=== PATIENT | female | born 2000 | race Two or more races ===

== ENCOUNTER 2021-08-12 13:28 | Emergency (ER) | payer MEDICAID ==
[~2021-08-12] VITALS: Ht 162.6 cm; Wt 65.8 kg
--- NOTE | 2021-08-12 13:45 | NUR ---
BIB SELF C/O CHEST PAIN SHARP AND PRESSURE LIKE STARTED 11AM TODAY NON RADIATING. PT STATED THE PAIN WAS 10/10 ON PS EARLIER BUT CURRENTLY 3/10/ PT ATTACHED TO MONITOR. PROVIDED WITH WARM BLANKET FOR COMFORT. VITALS WITHIN NORMAL LIMITS. BREATHING REGULAR AND UNLABORED. AWAITING MD ALONSO.
[2021-08-12] MEDS ORDERED: MAG HYDROX/AL HYDROX/SIMETH 30 ML UDC PO ONE (14:30)
[2021-08-12] MEDS ORDERED: LIDOCAINE VISCOUS 2% UD 15 ML UDC MM ONE (14:30)
--- NOTE | 2021-08-12 14:31 | NUR ---
IV ETSBALISHED R AC 20G. LABS DRAWN AND COLLECTED. CONVERTED TO SALINE LOCK.
[2021-08-12] MEDS ORDERED: LIDOCAINE VISCOUS 2% UD 15 ML UDC ONE (14:35)
[2021-08-12] MEDS ORDERED: MAG HYDROX/AL HYDROX/SIMETH 30 ML UDC ONE (14:35)
[2021-08-12 14:47] LABS: BASOPHILS % (AUTO) 0.3 % (0.0-2.0); EOSINOPHILS % (AUTO) 2.1 % (0.0-6.0); HEMATOCRIT 38 % (33-45); HEMOGLOBIN 12.8 g/dL (11.5-14.8); LYMPHOCYTES # (AUTO) 1.9 K/uL (0.8-4.8); LYMPHOCYTES % (AUTO) 14.1 % (20.0-44.0); MEAN CORPUSCULAR HGB CONC 34 g/dl (31.0-36.0); MEAN CORPUSCULAR VOLUME 90 fL (82-100); MONOCYTES # (AUTO) 0.7 K/uL (0.1-1.30); MONOCYTES % (AUTO) 5.4 % (2.0-12.0); NEUTROPHILS # (AUTO) 10.4 K/uL (1.8-8.9); NEUTROPHILS % (AUTO) 78.1 % (43.0-81.0); PLATELET COUNT (AUTO) 311 K/uL (150-450); RED BLOOD CELL COUNT(AUTO) 4.25 MIL/uL (4.0-5.2); WHITE BLOOD COUNT (AUTO) 13.3 K/uL (4.3-11.0)
[2021-08-12 15:19] LABS: ALANINE AMINOTRANSFERASE 23 U/L (12-78); ALBUMIN 3.9 g/dL (3.4-5.0); ALKALINE PHOSPHATASE 104 U/L (46-116); ASPARTATE AMINOTRANSFERASE 11 U/L (15-37); BILIRUBIN,DIRECT 0.1 mg/dL (0.0-0.2); BILIRUBIN,TOTAL 0.3 mg/dL (0.2-1.0); CALCIUM, SERUM 8.8 mg/dL (8.5-10.1); CARBON DIOXIDE 25 mmol/L (21-32); CREATININE 0.6 mg/dL (0.6-1.3); GLUCOSE 102 mg/dL (74-106); TOTAL PROTEIN, SERUM 7.1 g/dL (6.4-8.2); UREA NITROGEN, BLOOD 9 mg/dL (7-18)
[2021-08-12 16:38] LABS: CHLORIDE 101 mmol/L (98-107); POTASSIUM 3.8 mmol/L (3.5-5.1); SODIUM SERUM 136 mmol/L (136-145)
[2021-08-12 18:00] LABS: LIPASE 92 U/L (73-393)
[2021-08-12] MEDS ORDERED: FAMO-131 PO (18:14)
--- NOTE | 2021-08-12 18:45 | NUR ---
Patient discharged to home in stable condition. Written and verbal after care instructions given. Patient verbalizes understanding of instruction.
[2021-08-12 18:51] VITALS: BP 109/75
== END 2021-08-12 18:52 | disposition home or self-care (01) ==
LOC: ER 13:28
DX: R07.89 Other chest pain (principal); R10.13 Epigastric pain; J45.909 Unspecified asthma, uncomplicated
CPT/HCPCS: 36415; 71045-TC; 80048-TC; 80076-TC; 83690-TC; 84484-TC; 84702-TC; 84703-TC; 85025-TC

== ENCOUNTER 2021-10-28 19:30 | Emergency (ER) | payer MEDICAID ==
[~2021-10-28] VITALS: Ht 162.6 cm; Wt 68.0 kg
[~2021-10-28 19:30] MED LIST: FAMO-131 PO
[2021-10-28 22:59] VITALS: BP 121/77
[2021-10-29] MEDS ORDERED: CROM40SP BNOSTRILS (00:03)
[2021-10-29] MEDS ORDERED: LORA10TA7 PO (00:04)
--- NOTE | 2021-10-29 00:13 | NUR ---
Patient discharged to home in stable condition. Written and verbal after care instructions given. Patient verbalizes understanding of instruction.
== END 2021-10-29 00:14 | disposition home or self-care (01) ==
LOC: ER 19:33
DX: O26.899 Other specified pregnancy related conditions, unspecified trimester (principal); J31.0 Chronic rhinitis; J45.909 Unspecified asthma, uncomplicated; Z3A.00 Weeks of gestation of pregnancy not specified

== ENCOUNTER 2023-06-14 15:07 | Emergency (ER) | payer MEDICAID ==
[~2023-06-14] VITALS: Ht 162.6 cm; Wt 63.5 kg
[2023-06-14 15:59] VITALS: BP 128/79; TEMP 98.1
[2023-06-14] MEDS ORDERED: ACETAMINOPHEN ES 500 MG TABLET PO ONE (18:00)
[2023-06-14] MEDS ORDERED: NAPROXEN 250 MG TABLET PO ONE (18:00)
[2023-06-14] MEDS ORDERED: NAPROXEN 250 MG TABLET ONE (18:10)
[2023-06-14] MEDS ORDERED: ACETAMINOPHEN ES 500 MG TABLET ONE (18:10)
[2023-06-14] MEDS ORDERED: ACET-2605 PO (19:21)
[2023-06-14] MEDS ORDERED: BENZ-13 PO (19:21)
[2023-06-14] MEDS ORDERED: IBUP-1955 PO (19:21)
[2023-06-14 19:30] VITALS: O2SAT 98
== END 2023-06-14 20:22 | disposition home or self-care (01) ==
LOC: ER 15:15
DX: J06.9 Acute upper respiratory infection, unspecified (principal); J45.909 Unspecified asthma, uncomplicated; Z20.822 Contact with and (suspected) exposure to COVID-19
CPT/HCPCS: 71045-TC; 86403-TC

== ENCOUNTER → 2023-11-21 | Emergency (ER) | payer MEDICAID, OTHER ==
[~2023-11-21] VITALS: Ht 162.6 cm; Wt 68.0 kg
[~2023-11-21] MED LIST changes: +ACET-2605 PO; +ACETAMINOPHEN ES 500 MG TABLET ONE; +ALBU18HF2 INH; +ALBUTEROL FS 2.5 MG/3 ML VIAL.NEB ONE; +BENZ-13 PO; +IBUP-1955 PO; +IPRATROPIUM NEB FS 0.5 MG/2.5 ML AMPUL.NEB ONE; +LORA10TA7 PO; +Magnesium 1GM/D5W 100ML PREMIX 100 ML IV ONE; +PRED20TA PO; +methylPREDNISolone SOD SUCC 125 MG/2ML VIAL ONE
[2023-11-21] MEDS: methylPREDNISolone SOD SUCC 125 MG/2ML VIAL IV ONE (22:00)
[2023-11-21] MEDS: IV NS 0.9% 1,000 ML BAG IV ONE (22:00)
[2023-11-21 22:25] VITALS: O2SAT 96
[2023-11-21] MEDS: ALBUTEROL FS 2.5 MG/3 ML VIAL.NEB NEB ONE (22:25)
[2023-11-21] MEDS: IPRATROPIUM NEB FS 0.5 MG/2.5 ML AMPUL.NEB NEB ONE (22:25)
[2023-11-21] MEDS: Magnesium 1GM/D5W 100ML PREMIX 200 ML IV ONE (22:32)
[2023-11-21 22:40] VITALS: O2SAT 99
[2023-11-21] MEDS: ACETAMINOPHEN ES 500 MG TABLET PO ONE (23:29)
[2023-11-22 00:12] VITALS: BP 128/79; TEMP 98.3; O2SAT 99
== END | disposition home or self-care (01) ==
LOC: ER 21:19
DX: J45.901 Unspecified asthma with (acute) exacerbation (principal); Z79.899 Other long term (current) drug therapy
CPT/HCPCS: 99285; 96365; 96361; 96375; 93005; 94640; J2919; J7030; A4223; J3475

== ENCOUNTER 2023-11-22 12:53 | Emergency (ER) | payer MEDICAID, OTHER ==
[~2023-11-22] VITALS: Ht 162.6 cm; Wt 73.9 kg
[~2023-11-22 12:53] MED LIST changes: -ACETAMINOPHEN ES 500 MG TABLET ONE; -ALBUTEROL FS 2.5 MG/3 ML VIAL.NEB ONE; -IPRATROPIUM NEB FS 0.5 MG/2.5 ML AMPUL.NEB ONE; -LORA10TA7 PO; -Magnesium 1GM/D5W 100ML PREMIX 100 ML IV ONE; -methylPREDNISolone SOD SUCC 125 MG/2ML VIAL ONE
[2023-11-22 13:12] VITALS: O2SAT 96
[2023-11-22] MEDS: IPRATROPIUM NEB FS 0.5 MG/2.5 ML AMPUL.NEB NEB ONE (13:12)
[2023-11-22] MEDS: ALBUTEROL FS 2.5 MG/3 ML VIAL.NEB NEB ONE (13:12)
[2023-11-22] MEDS ORDERED: predniSONE 20 MG TABLET ONE (13:14)
[2023-11-22] MEDS ORDERED: ALBUTEROL FS 2.5 MG/3 ML VIAL.NEB ONE (13:17)
[2023-11-22] MEDS ORDERED: IPRATROPIUM NEB FS 0.5 MG/2.5 ML AMPUL.NEB ONE (13:17)
[2023-11-22] MEDS: predniSONE 20 MG TABLET PO ONE (13:18)
[2023-11-22 13:22] VITALS: O2SAT 98
[2023-11-22 13:23] VITALS: O2SAT 98
[2023-11-22 13:32] VITALS: O2SAT 98
[2023-11-22] MEDS ORDERED: PRED20TA PO (14:19)
[2023-11-22] MEDS ORDERED: LORA10TA7 PO (14:30)
[2023-11-22 14:49] VITALS: BP 134/95; TEMP 98.3; O2SAT 99
== END 2023-11-22 14:49 | disposition home or self-care (01) ==
LOC: ER 12:53
DX: J45.901 Unspecified asthma with (acute) exacerbation (principal)
CPT/HCPCS: 99283; 94640 ×2; J7512

== ENCOUNTER 2024-01-04 20:10 | Emergency (ER) | payer OTHER ==
[~2024-01-04] VITALS: Ht 160 cm; Wt 61.2 kg
[~2024-01-04 20:10] MED LIST changes: +LORA10TA7 PO
[2024-01-04] MEDS ORDERED: predniSONE 20 MG TABLET ONE (21:28)
[2024-01-04] MEDS: predniSONE 20 MG TABLET PO ONE (21:30)
[2024-01-04] MEDS ORDERED: IPRATROPIUM NEB FS 0.5 MG/2.5 ML AMPUL.NEB ONE (21:39)
[2024-01-04] MEDS ORDERED: ALBUTEROL FS 2.5 MG/3 ML VIAL.NEB ONE (21:39)
[2024-01-04 21:42] VITALS: O2SAT 98
[2024-01-04] MEDS: ALBUTEROL FS 2.5 MG/3 ML VIAL.NEB NEB ONE (21:55)
[2024-01-04] MEDS: IPRATROPIUM NEB FS 0.5 MG/2.5 ML AMPUL.NEB NEB ONE (21:55)
[2024-01-04 21:57] VITALS: O2SAT 100
[2024-01-04] MEDS ORDERED: GUAI1TBM19 PO (22:27)
[2024-01-04] MEDS ORDERED: PRED20TA PO (22:27)
[2024-01-05] VITALS: BP 128/80; TEMP 98.8; O2SAT 100
== END 2024-01-05 00:01 | disposition home or self-care (01) ==
LOC: ER 20:15
DX: J45.901 Unspecified asthma with (acute) exacerbation (principal); J06.9 Acute upper respiratory infection, unspecified; Z20.822 Contact with and (suspected) exposure to COVID-19
CPT/HCPCS: 99283; 87426; 87804 ×2; 94799; 94640; J7512